=== PATIENT | female | born 1985 | race Caucasian/White ===

== ENCOUNTER 2022-03-03 16:01 | Outpatient (CLI) | payer BC, SELFPAY | END 2022-03-03 16:02 | disposition home or self-care (01) | LOC: NFLDREF 16:02 | PROVIDERS: PCP Family Medicine; Visit Provider Family Medicine | DX: E03.9 Hypothyroidism, unspecified (principal); N94.6 Dysmenorrhea, unspecified | CPT/HCPCS: 84443 ==

== ENCOUNTER 2022-09-01 13:35 | Outpatient (CLI) | payer BC, SELFPAY ==
[2022-09-01 18:06] LABS: Cholesterol* 191 mg/dL (90-199); Glucose* 78 mg/dL (60-115); HDL Cholesterol* 50 mg/dL (>=50); LDL Cholesterol Calculated 102 mg/dL (<100); Triglycerides* 196 mg/dL (40-149)
== END 2022-09-01 13:36 | disposition home or self-care (01) ==
PROVIDERS: PCP Family Medicine; Visit Provider Registered Nurse
DX: Z13.6 Encounter for screening for cardiovascular disorders (principal); Z13.1 Encounter for screening for diabetes mellitus
CPT/HCPCS: 80061; 82947

== ENCOUNTER 2023-05-18 08:32 | Outpatient (CLI) | payer BC, SELFPAY | END 2023-05-18 08:33 | disposition home or self-care (01) | LOC: NFLDREF 08:33 | PROVIDERS: PCP Family Medicine; Visit Provider Family Medicine | DX: R68.82 Decreased libido (principal); E03.9 Hypothyroidism, unspecified; E06.3 Autoimmune thyroiditis | CPT/HCPCS: 84439; 84443 ==

== ENCOUNTER 2023-11-26 16:05 | Outpatient (CLI) | payer BC, SELFPAY ==
--- OUTSIDE RECORDS SUMMARY | 2023-11-28 07:30 | XMS_ITS | Clinical Summary ---
Author Name Unknown Organization [facility] Address [place], [place] [address] Care Team Providers Care Electronic Health Records Specialist Name Role Phone Catalina Guadarrama VELASQUEZ Primary Care Provider [phone] Allergies Active Allergy Reactions Criticality Noted Date Comments Penicillins Rash 09/29/2010 Medications Medication Sig Dispensed Refills Start Date End Date Status norgestimate-ethinyl estradiol, 0.25-35 mg-mcg, (SPRINTEC) 0.25-35 mg-mcg tablet Take 1 tablet by mouth once daily. 1 Package PRN 09/29/2010 Active ranitidine (ZANTAC) 150 mg capsule Take 1 capsule by mouth 2 times daily. 0 12/08/2010 Active rabeprazole (ACIPHEX) 20 mg tablet Take 1 tablet by mouth once daily. 30 tablet 11 04/13/2011 Active pantoprazole (PROTONIX) 40 mg delayed-release tablet TAKE 1 TABLET BY MOUTH EVERY DAY 90 tablet 3 12/11/2013 Active Family History Medical History Relation Name Comments Other Father blindness from accident Relation Name Status Comments Father Social History Tobacco Use Types Packs/Day Years Used Date Smoking Tobacco: Never Smokeless Tobacco: Never Alcohol Use Standard Drinks/Week Comments Not Asked 0 (1 standard drink = 0.6 oz pur e alcohol) Sex and Gender Information Value Date Recorded Sex Assigned at Not on file Gender Identity Not on file Sexual Orientation Not on file Obstetrics History Last Filed Vital Signs Vital Sign Reading Time Taken Comments Blood Pressure 126/88 04/13/2011 4:09 PM CDT Pulse 76 04/13/2011 4:09 PM CDT Temperature - - Respiratory Rate - - Oxygen Saturation 97% 04/13/2011 4:09 PM CDT Inhaled Oxygen Concentration - - Weight 81.2 kg (179 lb) 04/13/2011 4:09 PM CDT Height - - Body Mass Index - - Plan of Treatment Health Maintenance Due Date Last Done Comments Tdap 1995 Depression screening for age 12+ 1996 HIV for age 15-65 1999 BMI (ht and wt on same day) for age 18+ 2002 Hepatitis C screening for age 18-79 2002 Tetanus booster 2004 COVID-19 vaccine series (2022-24 season) 2023 Influenza for age 9-49 03/16/2024 Pap test for age 21-65 09/01/2025 , 09/01/2022, 11/12/2014, Additional history exists Pneumococcal series for age 6-64 Aged Out No longer eligible based on patient's age to complete this topic Procedures Procedure Name Priority Date/Time Associated Diagnosis Comments HPV THIN PREP Routine 09/01/2022 12:00 PM FIBRE CEMENT MOULDER from Last 3 Months or Most Recently Relevant to Health Maintenance Results * HPV HIGH RISK (09/01/2022 12:00 PM FIBRE CEMENT MOULDER) TYPE 16 Negative Negative 09/06/2022 2:00 PM FIBRE CEMENT MOULDER [facility] TYPE 18 Negative Negative 09/06/2022 2:00 PM FIBRE CEMENT MOULDER [facility] OTHER HIGH RISK TYPES Negative Negative 09/06/2022 2:00 PM FIBRE CEMENT MOULDER [facility] Other (Cervical/Vagina l) 09/01/2022 12:00 PM FIBRE CEMENT MOULDER 09/04/2022 5:18 PM FIBRE CEMENT MOULDER Narrative [facility] - 09/06/2022 2:00 PM FIBRE CEMENT MOULDER HPV types 16, 18, 31, 33, 35, 39, 45, 51, 52, 56, 58, 59, 66 and 68 DNA were undetectable or below the pre-set threshold. Methodology: Huey Jody 4800 HPV Test Macie Sanabria NP MICROBIOLOGY [facility] [address] [place] [address], [place] from Last 3 Months or Most Recently Relevant to Health Maintenance Care Teams Electronic Health Records Specialist Relationship Specialty Start Date End Date Thierry October Rico, PAVikashC [address] [place] [address] PCP - General Physician Emergency Service Restorer 09/29/10
== END 2023-11-26 16:06 | disposition home or self-care (01) ==
LOC: NFLDREF 11-28 07:27
PROVIDERS: PCP Family Medicine; Referring Provider Family Medicine; Visit Provider Family Medicine
DX: E03.9 Hypothyroidism, unspecified (principal)
CPT/HCPCS: 84443

== ENCOUNTER 2024-06-11 08:20 | Outpatient (CLI) | payer BC, SELFPAY ==
--- OUTSIDE RECORDS SUMMARY | 2024-06-11 08:24 | XMS_ITS | Clinical Summary ---
Author Organization [facility] Address [place], [place] [address] Care Team Providers Care Stitch Bonding Machine Operator Name Role Phone Catalina Guadarrama VELASQUEZ Primary Care Provider [phone]- [phone] Allergies Active Allergy Reactions Criticality Noted Date [...] 2002 Tetanus booster 2004 COVID-19 vaccine series (2023-25 season) 2024 Influenza for age 9-49 03/16/2024 Pap test for age 21-65 09/01/2025 , 09/01/2022, 11/12/2014, Additional history exists Pneumococcal series for age 6-64 Aged Out No longer eligible based on patient's age to complete this topic Procedures Procedure Name Priority Date/Time Associated Diagnosis Comments HPV HIGH RISK Routine 09/01/2022 12:00 PM KILN DOOR REPAIRER from Last 3 Months or Most Recently Relevant to Health Maintenance Results * HPV HIGH RISK (09/01/2022 12:00 PM KILN DOOR REPAIRER) TYPE 16 Negative Negative 09/06/2022 2:00 PM KILN DOOR REPAIRER [facility] TYPE 18 Negative Negative 09/06/2022 2:00 PM KILN DOOR REPAIRER [facility] OTHER HIGH RISK TYPES Negative Negative 09/06/2022 2:00 PM KILN DOOR REPAIRER [facility] Other (Cervical/Vagina l) 09/01/2022 12:00 PM KILN DOOR REPAIRER 09/04/2022 5:18 PM KILN DOOR REPAIRER Narrative [facility] - 09/06/2022 2:00 PM KILN DOOR REPAIRER HPV types 16, 18, 31, 33, 35, 39, 45, 51, 52, 56, 58, 59, 66 and 68 DNA were undetectable or below the pre-set threshold. Methodology: Huey Jody 4800 HPV Test Macie Sanabria NP MICROBIOLOGY [facility] [address] [place] [address], [place] from Last 3 Months or Most Recently Relevant to Health Maintenance Care Teams Stitch Bonding Machine Operator Relationship Specialty Start Date End Date Thierry October Rico, PAVikashC [address] [place] [address] PCP - General Physician Timekeeping Supervisor 09/29/10
== END 2024-06-11 08:21 | disposition home or self-care (01) ==
LOC: NFLDREF 08:23
PROVIDERS: PCP Registered Nurse; Visit Provider Registered Nurse
DX: R68.82 Decreased libido (principal); E03.9 Hypothyroidism, unspecified; E06.3 Autoimmune thyroiditis
CPT/HCPCS: 84443